=== PATIENT | male | born 1985 | race Caucasian/White ===

== ENCOUNTER 2019-02-15 09:19 | Emergency (ER) | payer SELFPAY ==
[2019-02-15] MEDS ORDERED: cefTRIAXone 1 GM Vial IM ONE (09:36)
--- NOTE | 2019-02-15 09:39 | EDM.PDOC ---
ED HPI GENERAL MEDICAL PROBLEM - General Chief Complaint: Skin Complaint Stated Complaint: INFECTION Time Seen by Provider: 02/15/19 09:37 Source of Information: Reports: Patient - History of Present Illness INITIAL COMMENTS - FREE TEXT/NARRATIVE: HISTORY AND PHYSICAL: History of present illness: []Patient presents post drainage of a pimple in his right nare, 3 days prior to arrival, since he has had some mild upper lip swelling followed by some redness and tenderness extending from the Bear over his right cheek no distress no fever nausea vomiting chills sweats some redness warmth no fluctuance, he did have some clear drainage from the lesion which she again drained this morning I did try to obtain a swab however there is very scant drainage Review of systems: As per history of present illness and below otherwise all systems reviewed and negative. Past medical history: As per history of present illness and as reviewed below otherwise noncontributory. Surgical history: As per history of present illness and as reviewed below otherwise noncontributory. Social history: No reported history of drug or alcohol abuse. Family history: As per history of present illness and as reviewed below otherwise noncontributory. Physical exam: HEENT: Atraumatic, normocephalic, pupils reactive, negative for conjunctival pallor or scleral icterus, mucous membranes moist, throat clear, neck supple, nontender, trachea midline. Lungs: Clear to auscultation, breath sounds equal bilaterally, chest nontender. Heart: S1S2, regular, negative for clicks, rubs, or JVD. Abdomen: Soft, nondistended, nontender. Negative for masses or hepatosplenomegaly. Negative for costovertebral tenderness. Pelvis: Stable nontender. Genitourinary: Deferred. Rectal: Deferred. Extremities: Atraumatic, negative for cords or calf pain. Neurovascular unremarkable. Neuro: Awake, alert, oriented. Cranial nerves II through XII unremarkable. Cerebellum unremarkable. Motor and sensory unremarkable throughout. Exam nonfocal. Diagnostics: [Culture ] Therapeutics: [1 g Rocephin IM bactrim DS #20 no refill ] Impression: [ cellulitis ] Definitive disposition and diagnosis as appropriate pending reevaluation and review of above. R lip/facial Pain Score (Numeric/FACES): 6 - Related Data Allergies Allergy/AdvReac Type Severity Reaction Status Date / Time No Known Allergies Allergy Verified 02/15/19 09:31 Home Meds: Home Meds . [No Known Home Meds] 02/15/19 [History] ED ROS GENERAL - Review of Systems Review Of Systems: See Below ED EXAM, SKIN/RASH Exam: See Below Course - Vital Signs Last Recorded V/S: Last Vital Signs Temp 97.4 F 02/15/19 09:29 Pulse 84 02/15/19 09:29 Resp 18 02/15/19 09:29 BP 137/72 02/15/19 09:29 Pulse Ox 100 02/15/19 09:29 - Orders/Labs/Meds Orders: Active Orders 24 hr Category Date Time Status CULTURE WOUND [RM] Stat Lab 02/15/19 09:36 Ordered cefTRIAXone [Rocephin] Med 02/15/19 09:36 Once 1 gm IM ONETIME ONE Departure - Departure Time of Disposition: 09:39 Disposition: Home, Self-Care 01 Condition: Good Clinical Impression: Cellulitis - Discharge Information Referrals: PCP,None [Primary Care Provider] - Additional Instructions: The following information is given to patients seen in the emergency department who are being discharged to home. This information is to outline your options for follow-up care. We provide all patients seen in our emergency department with a follow-up referral. The need for follow-up, as well as the timing and circumstances, are variable depending upon the specifics of your emergency department visit. If you don't have a primary care physician on staff, we will provide you with a referral. We always advise you to contact your personal physician following an emergency department visit to inform them of the circumstance of the visit and for follow-up with them and/or the need for any referrals to a consulting specialist. The emergency department will also refer you to a specialist when appropriate. This referral assures that you have the opportunity for follow-up care with a specialist. All of these measure are taken in an effort to provide you with optimal care, which includes your follow-up. Under all circumstances we always encourage you to contact your private physician who remains a resource for coordinating your care. When calling for follow-up care, please make the office aware that this follow-up is from your recent emergency room visit. If for any reason you are refused follow-up, please contact the [facility] emergency department at and asked to speak to the emergency department charge nurse. - My Orders Last 24 Hours: My Active Orders 02/15/19 09:36 CULTURE WOUND [RM] Stat cefTRIAXone [Rocephin] 1 gm IM ONETIME ONE - Assessment/Plan Last 24 Hours: My Active Orders 02/15/19 09:36 CULTURE WOUND [RM] Stat cefTRIAXone [Rocephin] 1 gm IM ONETIME ONE
[2019-02-15] MEDS ORDERED: Lidocaine 1% 2 ML ONE (09:40)
== END 2019-02-15 10:31 | disposition home or self-care (01) ==
LOC: MW.ED 09:19 → EEVIPCON 09:19 → MW.ED 10:31
DX: L03.211 Cellulitis of face (principal); K13.0 Diseases of lips
CPT/HCPCS: 87070; 96372; 99283; J0696; J2001; 87077; 87186